=== PATIENT | female | born 1990 | race Caucasian/White ===

== ENCOUNTER 2025-10-05 12:56 | Emergency (ER) | payer OTHER, SELFPAY ==
[2025-10-05 13:10] VITALS: BP 131/86; PULSE 121; RESP 20; TEMP 37.3; O2SAT 100
--- NOTE | 2025-10-05 13:23 | ED.EAR ---
HPI - Ear Problem General Chief complaint: Ear Stated complaint: Right ear ache Time Seen by Provider: 10/05/25 13:18 Source: patient, RN notes reviewed and old records reviewed Mode of arrival: ambulatory Limitations: no limitations History of Present Illness HPI Narrative: 35 year old female who [facility] with complaints of bilateral ear pain early this morning with right ear greater that left, is visiting from [place]. Patient reports no drainage from ears and denies any fever or any other UTI symptoms.. Patient reports that she has history of ear infections and also has had ear tubes in the past. Patient reports that she takes daily Zyrtec and nasal spray for allergies.. MD Complaint: ear pain Location: bilateral (greatest right ear) Severity: moderate Discharge from ear: Reports no Treatment prior to arrival: other (takes daily zyrtec and uses nasal spray for allergies) Related Data Home Medications ?Medication ?Instructions ?Recorded ?Confirmed ?Last Taken ?Type amlodipine 5 mg tablet mg 10/05/25 Unknown History atorvastatin 20 mg tablet mg 10/05/25 Unknown History azelastine 137 mcg (0.1 %) nasal intranasal 10/05/25 Unknown History spray loratadine 10 mg tablet mg 10/05/25 Unknown History meloxicam 15 mg tablet mg 10/05/25 Unknown History ondansetron 4 mg disintegrating mg 10/05/25 Unknown History tablet sertraline 25 mg tablet mg 10/05/25 Unknown History trazodone 50 mg tablet mg 10/05/25 Unknown History Allergies Allergy/AdvReac Type Severity Reaction Status Date / Time Penicillins Allergy Mild Rash Verified 10/05/25 13:15 Review of Systems Review of Systems: CONSTITUTIONAL: Denies malaise, chills, sweats, or fever. EYES: Denies visual changes, redness, or discharge. ENT: Reports no rhinorrhea, congestion, sinus pain, bilateral otalgia and no sore throat. CARDIOVASCULAR: Denies chest pain, palpitations, or edema. RESPIRATORY: Reports no cough.? Denies dyspnea. GASTROINTESTINAL: Denies abdominal pain, nausea, vomiting, diarrhea SKIN: Denies rash or itching. MUSCULOSKELETAL: Denies myalgia. NEUROLOGIC: Denies headache. All systems reviewed & are unremarkable except as noted in HPI and below PMFSH Past Medical History Medical History (Updated 10/06/25 @ 19:44 by Li Dunlap APRN) Anxiety and depression Tinnitus Cancer of skin of face excision Hyperlipidemia Hypertension Surgical History Surgical History (Updated 10/06/25 @ 19:40 by Li Dunlap APRN) History of placement of ear tubes Social History Social History (Updated 10/06/25 @ 19:39 by Li Dunlap APRN) Smoking status: Never smoker Alcohol intake: current Alcohol use details: social Substance use type: does not use Gender identity (if verbalized by the patient): Female Comments At time of signature, agree with nursing past medical, surgical, social and family history. There is no relevant family history pertinent to the presenting complaint Exam Narrative: GENERAL: Well-appearing, well-nourished, and in no acute distress. HEAD: Normocephalic EYES: PERRLA, conjunctivae clear ENT: Nares clear, turbinates edematous and erythematous, clear discharge. Mucous membranes moist.Right TM red and bulging, Left TM pearly callahan with dull light reflex bilaterally; no tragal tenderness. Oropharynx erythematous without lesions. Tonsils not enlarged and without exudate, no drooling, no hoarseness, no trismus, uvula midline. NECK: Supple. No lymphadenopathy CHEST: Clear to auscultation, breath sounds equal. No wheezing, rhonchi, rales, or stridor. No respiratory distress, speaks in full sentences.no tachypnea SAO2 100% on room air HEART: Regular rate and rhythm. No murmur heard. SKIN: Warm, dry, no rash. NEURO: Alert and oriented x3. PSYCH: Normal mood and affect Course Course Emergency Course: Patient is aware of diagnosis, understands and agrees to treatment plan.? Anticipatory guidance given.? Patient agrees to follow-up as directed and is aware of reasons to seek care at the emergency department. Portions of this record may have been created with voice recognition software Level of Care: Express Care Visit Vital Signs Vital signs: Vital Signs Temperature 37.3 C 10/05/25 13:10 Pulse Rate 121 H 10/05/25 13:10 Respiratory Rate 20 10/05/25 13:10 Blood Pressure 131/86 10/05/25 13:10 Pulse Oximetry 100 10/05/25 13:10 Oxygen Delivery Room Air 10/05/25 13:10 Temperature 37.3 C 10/05/25 13:10 Pulse Rate 121 H 10/05/25 13:10 Respiratory Rate 20 10/05/25 13:10 Blood Pressure 131/86 10/05/25 13:10 Pulse Oximetry 100 10/05/25 13:10 Oxygen Delivery Room Air 10/05/25 13:10 Reviewed Medical Decision Making Differential Diagnosis Differential Diagnosis: URI.otalgia, otitis media, otitis externa Medical Records Medical records reviewed: Yes I reviewed the external patient's medical records. Vital Signs Vital Signs: Vital Signs Temperature 37.3 C 10/05/25 13:10 Pulse Rate 121 H 10/05/25 13:10 Respiratory Rate 20 10/05/25 13:10 Blood Pressure 131/86 10/05/25 13:10 Pulse Oximetry 100 10/05/25 13:10 Oxygen Delivery Room Air 10/05/25 13:10 Temperature 37.3 C 10/05/25 13:10 Pulse Rate 121 H 10/05/25 13:10 Respiratory Rate 20 10/05/25 13:10 Blood Pressure 131/86 10/05/25 13:10 Pulse Oximetry 100 10/05/25 13:10 Oxygen Delivery Room Air 10/05/25 13:10 reviewed Critical Care Time Critical Care Time Critical Care Time: No Discharge Plan Discharge Clinical Impression: Otitis media, right Qualifiers: Otitis media type: serous Chronicity: acute Recurrence: not specified as recurrent Qualified Code(s): H65.01 - Acute serous otitis media, right ear Patient Disposition: Home Condition: Stable Instructions: Antibiotic Form, Ear Infection (GEN) Additional Instructions: Increase fluids especially juices and water [id number] cough and cold medicine of your choice for your symptoms Continue Zyrtec daily and may include Coricidin brand decongestant heat to the face 20-30 minutes 4-6 times a day for pain Salt water gargles, throat lozenges or throat sprays as desired Antibiotic as directed--finished the medication If your symptoms persist, change or worsen significantly before you can contact your personal physician then please, without delay, go to the emergency department for further evaluation. Follow-up with PCP in 7-10 days or sooner if needed Follow up with PCP soon in regards to your blood pressure which is elevated above threshold for referral. Blood pressure above 120/80 may indicate pre-hypertension.131/86 Patient Language: B[place] Prescriptions: New azithromycin 250 mg tablet See Rx Instructions .ROUTE .COMPLEX Qty: 6 0RF Rx Instructions: For 250 mg dose pack: take 500 mg today (day 1), then 250 mg for 4 days (days 2-5) No Action atorvastatin 20 mg tablet trazodone 50 mg tablet meloxicam 15 mg tablet amlodipine 5 mg tablet sertraline 25 mg tablet azelastine 137 mcg (0.1 %) spray,non-aerosol INTRANASAL ondansetron 4 mg tablet,disintegrating loratadine 10 mg tablet Follow-up/Referrals: PHYSICIAN NOT ON STAFF,NONSTAFF [Primary Care Provider] Time of Disposition: 13:32 Quality [place] Coma Scale Eyes: Open Verbal: Oriented and Alert Motor: Follows Commands [place] Coma Total Score: 15
== END 2025-10-05 13:37 | disposition home or self-care (01) ==
PROVIDERS: Emergency Provider Registered Nurse
DX: H65.01 Acute serous otitis media, right ear (principal); I10 Essential (primary) hypertension; E78.5 Hyperlipidemia, unspecified; F41.9 Anxiety disorder, unspecified; F32.A Depression, unspecified; Z85.828 Personal history of other malignant neoplasm of skin
CPT/HCPCS: 99213; G0463